=== PATIENT | male | born 1945 | race Caucasian/White ===

== ENCOUNTER 2022-04-11 08:37 | Day surgery (SDC) | payer MEDICARE, MEDICAID ==
[~2022-04-11] VITALS: Ht 167.6 cm; Wt 63.5 kg
[~2022-04-11 08:37] MED LIST: CHOL500010 PO; FURO80TA3 PO; ISOS60TA76 PO; LEVO100T9 PO; MINO10TA PO; NIFE90TA43 PO; POTA10CA42 PO
[2022-04-11] MEDS ORDERED: TROPICAMIDE 1% OPHTH DROPS 15ML RIGHTEYE SCH (09:00)
[2022-04-11] MEDS ORDERED: CYCLOPENTOLATE HCL 1% OPHTH DROPS 2ML RIGHTEYE SCH (09:00)
[2022-04-11] MEDS ORDERED: PHENYLEPHRINE HCL 10% OPHTH DROPS 5ML RIGHTEYE SCH (09:00)
[2022-04-11] MEDS ORDERED: LACTATED RINGERS 1,000 ML IV SCH (09:00)
[2022-04-11] MEDS ORDERED: HYALURONATE SODIUM 10 MG/ML 0.55ML SYRINGE IO ONE ×2 (11:47→15:25)
[2022-04-11] MEDS ORDERED: FENTANYL CITRATE/PF 50MCG/ML 2ML VIAL ONE (12:18)
[2022-04-11] MEDS ORDERED: MIDAZOLAM HCL 2 MG/2 ML VIAL ONE (12:18)
[2022-04-11] MEDS ORDERED: PREDNISOLONE ACETATE 1% OPHTH DROPS 5ML ONE (13:00)
[2022-04-11] MEDS ORDERED: ACETYLCHOLINE CHLORIDE INTRAOCULAR SOLUTION 1:100 ELECTROLYTE DILUENT IO ONE (13:00)
[2022-04-11] MEDS ORDERED: NEO/POLYMYX B SULF/DEXAMETH OPHTH OINT 3.5GM ONE (13:00)
[2022-04-11] MEDS ORDERED: ATROPINE SULFATE 1% OPHTH 2ML ONE (13:00)
[2022-04-11] MEDS ORDERED: TETRACAINE 0.5% OPHTH DROPS 4ML ONE (13:00)
[2022-04-11] MEDS ORDERED: BALANCED SALT IRRIG SOLN 15ML ONE (13:00)
[2022-04-11] MEDS ORDERED: FENTANYL CITRATE/PF 50MCG/ML 2ML VIAL IV PRN (13:45)
[2022-04-11] MEDS ORDERED: HYDROCODONE/ACETAMINOPHEN 5/325MG TABLET PO PRN (13:45)
[2022-04-11 14:06] VITALS: BP 120/65
== END 2022-04-11 14:55 | disposition home or self-care (01) ==
LOC: OR 08:37
PROVIDERS: ATTEND Ophthalmology
DX: H25.89 Other age-related cataract (principal); I10 Essential (primary) hypertension; E78.00 Pure hypercholesterolemia, unspecified; E03.9 Hypothyroidism, unspecified; M19.90 Unspecified osteoarthritis, unspecified site; Z79.82 Long term (current) use of aspirin; Z79.899 Other long term (current) drug therapy; Z98.890 Other specified postprocedural states; Z20.822 Contact with and (suspected) exposure to COVID-19
CPT/HCPCS: 66984; 67005; 87426; C9803; J2250; J3010; J3490; J7120; V2630; V2632

== ENCOUNTER → 2023-06-12 | Day surgery (SDC) | payer MEDICARE, MEDICAID ==
[~2023-06-12] VITALS: Ht 167.6 cm; Wt 63.5 kg
[~2023-06-12] MED LIST changes: +BALANCED SALT IRRIG SOLN COMB1 500ML OP NR; +CALC-1042 PO; +CYCLOPENTOLATE HCL 1% OPHTH DROPS 2ML LEFTEYE ONE; +FENTANYL CITRATE/PF 50MCG/ML 2ML VIAL ONE; +HYALURONATE SODIUM 10 MG/ML 0.55ML SYRINGE IO ONE; +LACTATED RINGERS 1,000 ML IV SCH; +MIDAZOLAM HCL 2 MG/2 ML VIAL ONE; +PHENYLEPHRINE HCL 10% OPHTH DROPS 5ML LEFTEYE ONE; -POTA10CA42 PO; +POTA10CA43 PO; +TROPICAMIDE 1% OPHTH DROPS 15ML LEFTEYE ONE; +TRYPAN BLUE 0.5 ML DISP.SYRIN IO ONE
== END | disposition home or self-care (01) ==
LOC: OR 09:07
PROVIDERS: ATTEND Ophthalmology
DX: H25.89 Other age-related cataract (principal); I10 Essential (primary) hypertension; E78.00 Pure hypercholesterolemia, unspecified; E03.9 Hypothyroidism, unspecified; M19.90 Unspecified osteoarthritis, unspecified site; Z79.899 Other long term (current) drug therapy; Z98.890 Other specified postprocedural states
CPT/HCPCS: 66982; J3010; J2250; J3490; A4217; Z7610 ×18; V2632; Q9957